=== PATIENT | female | born 1995 | race Two or more races ===

== ENCOUNTER 2021-09-25 09:33 | Emergency (ER) | payer MEDICAID, OTHER ==
[~2021-09-25] VITALS: Ht 157.5 cm; Wt 121.6 kg
[2021-09-25 11:16] LABS: Urine Bacteria NONE SEEN /hpf (None Seen); Urine Blood Negative /uL (Negative); Urine Specific Gravity 1.022 (1.001-1.035); Urine WBC 1 /hpf (0 - 5)
[2021-09-25 11:28] VITALS: BP 132/76
== END 2021-09-25 12:37 | disposition home or self-care (01) ==
LOC: ER 09:33
DX: S20.212A Contusion of left front wall of thorax, initial encounter (principal); S29.012A Strain of muscle and tendon of back wall of thorax, initial encounter; X58.XXXA Exposure to other specified factors, initial encounter; Y93.89 Activity, other specified; Y92.89 Other specified places as the place of occurrence of the external cause; Y99.8 Other external cause status
CPT/HCPCS: 81001; 81025